=== PATIENT | male | born 1970 | race Caucasian/White ===

== ENCOUNTER 2020-07-01 10:13 | Emergency (ER) | payer MEDICAID ==
[~2020-07-01] VITALS: Ht 160 cm; Wt 83.9 kg
[2020-07-01 10:23] VITALS: BP_SYST 133
[2020-07-01] MEDS ORDERED: KETOROLAC TROMETHAMINE 60 MG/2 ML VIAL IM ONE (10:30)
[2020-07-01] MEDS ORDERED: IBUP-1971 PO (11:22)
[2020-07-01] MEDS ORDERED: HYDR-3917 PO (11:22)
[2020-07-01 11:34] VITALS: BP_SYST 133
== END 2020-07-01 11:36 | disposition home or self-care (01) ==
LOC: SED 10:13
DX: M25.511 Pain in right shoulder (principal); Y04.0XXA Assault by unarmed brawl or fight, initial encounter; Y93.89 Activity, other specified; Y92.89 Other specified places as the place of occurrence of the external cause; Y99.8 Other external cause status
CPT/HCPCS: 73030; 96372; 99283; J1885